=== PATIENT | male | born 1960 | race Caucasian/White ===

== ENCOUNTER 2022-12-31 05:57 | Outpatient (REF) | payer BC, SELFPAY ==
[2022-12-31 06:18] LABS: MANUAL DIFF FLAG NO
[2022-12-31 08:11] LABS: Basophils Absolute Auto 0.1 X10*3/uL (0.0-0.2); Basophils Percent Auto 0.8 % (0-2); Eosinophils Absolute Auto 0.4 X10*3/uL (0.0-0.4); Eosinophils Percent Auto 4.2 % (0-4); Hemoglobin 14.3 g/dl (14.0-18.0); Imm Gran Abs Auto 0.03 X10*3/uL (0.00-0.03); Imm Gran Pct Auto 0.3 % (0.0-0.4); Lymphocytes Absolute Auto 2.3 X10*3/uL (1.2-4.9); Lymphocytes Percent Auto 24.9 % (20-40); Mean Corpuscular HGB Conc 33.3 g/dl (31.0-36.0); Mean Corpuscular Hemoglobin 31.6 pg (27.0-33.0); Mean Corpuscular Volume 95.1 fL (80.0-98.0); Mean Platelet Volume 10.5 fL (9.4-12.4); Monocytes Absolute Auto 0.8 X10*3/uL (0.1-1.2); Monocytes Percent Auto 8.4 % (2-11); Neutrophils Absolute Auto 5.5 x10*3/uL (2.0-8.3); Neutrophils Percent Auto 61.4 % (45-73); Platelet Count 190 X10*3/uL (160-400); Red Blood Count 4.52 X10*6/uL (4.60-5.80); Red Cell Distribution Width 12.4 % (11.0-16.0)
[2022-12-31 08:34] LABS: Alanine Aminotransferase 24 U/L (0-40); Albumin Level 4.4 g/dL (3.5-5.0); Alkaline Phosphatase 65 U/L (39-117); Anion Gap 14 (12-20); Aspartate Amino Transferase 24 U/L (5-37); Bilirubin Total 0.6 mg/dL (0.0-1.0); Blood Urea Nitrogen 13 mg/dL (9-16); Calcium 9.4 mg/dL (8.4-10.2); Carbon Dioxide 25 mmol/L (22-29); Chloride 107 mmol/L (96-108); Cholesterol 130 mg/dL (<200); Estimated Glomerular Filt Rate > 60; Glucose Fasting 103 mg/dL (60-99); HDL Cholesterol 43 mg/dL (>40); LDL Cholesterol Calculated 72 mg/dL (<100); Potassium 4.2 mmol/L (3.3-5.1); Sodium 142 mmol/L (135-145); Triglycerides 79 mg/dL (<150)
[2022-12-31 08:56] LABS: Prostate Specific Antigen 0.64 ng/mL (<0.05-4.0)
== END 2022-12-31 05:58 | disposition home or self-care (01) ==
LOC: HO.LAB 05:57
PROVIDERS: PCP Internal Medicine; Visit Provider Internal Medicine
DX: Z12.5 Encounter for screening for malignant neoplasm of prostate (principal); I10 Essential (primary) hypertension; E78.00 Pure hypercholesterolemia, unspecified
CPT/HCPCS: 36415; 80053; 80061; 84153; 85025

== ENCOUNTER 2024-02-25 08:52 | Emergency (ER) | payer BC, SELFPAY ==
--- NOTE | ~2024-02-25 | XR_ITS ---
EXAMINATION: XR CLAVICLE, LEFT CLINICAL INFORMATION: Fall COMPARISON: None available. TECHNIQUE: Two views of the left clavicle. FINDINGS: Mildly displaced noncomminuted fracture involving the mid left clavicle with approximately half shaft length cranial displacement of the proximal fragment. Joint spaces and alignment are otherwise maintained. Soft tissues are unremarkable. Visualized portions of the chest are unremarkable. XR/XR clavicle LT IMPRESSION: Mildly displaced noncomminuted fracture involving the mid left clavicle with approximately half shaft length cranial displacement of the proximal fragment. Electronically signed by: Flakito Aguirre MD 02/25/2024 09:41 AM [facility]
[2024-02-25 09:09] VITALS: BP 194/95; PULSE 77; RESP 18; TEMP 36.8; O2SAT 99; BMI 27.4
--- NOTE | 2024-02-25 09:55 | ED_ITS ---
HPI - Extremity Problem General Chief complaint: Extremity Injury, Upper Stated complaint: fall l shoulder inj Time Seen by Provider: 02/25/24 09:33 Source: patient Mode of arrival: ambulatory Limitations: no limitations History of Present Illness ED Provider: Deisy Osorio APRN HPI Narrative: 63-year-old male with a history of hypertension who is right-hand dominant presents to the ER with complaints of left shoulder pain after mechanical fall which occurred last evening. Patient reports he tripped and fell landing on his left shoulder. There was no head strike or loss of consciousness. Reports pain in the left shoulder. Denies associated weakness, numbness or tingling of the extremity. Related Data Previous Rx's ?Medication ?Instructions ?Recorded oxycodone 5 mg tablet 5 mg PO Q8H PRN pain #6 tabs 02/25/24 Allergies Allergy/AdvReac Type Severity Reaction Status Date / Time No Known Allergies Allergy Verified 02/25/24 09:12 Review of Systems 2 Review of Systems: Yes all other systems are reviewed and are negative Constitutional: Constitutional: Reports no additional constitutional complaints, Denies body ache(s), Denies chills, Denies fever(s), Denies headache(s) and Denies weakness Eyes: Eyes: Reports no additional eye complaints and Denies change in vision ENT: Reports system reviewed and no additional complaints, except as documented, Denies dizziness, Denies headache(s), Denies nasal congestion, Denies nasal discharge and Denies neck pain Cardiovascular: Cardiovascular: Reports no additional cardiovascular complaints, Denies chest pain, Denies leg edema and Denies dyspnea Respiratory: Respiratory: Reports no additional respiratory complaints, Denies cough and Denies dyspnea Gastrointestinal: Gastrointestinal: Reports no additional gastrointestinal complaints, Denies abdominal pain, Denies diarrhea, Denies nausea and Denies vomiting Genitourinary: Genitourinary: Denies urinary incontinence Musculoskeletal: Musculoskeletal: Reports no additional musculoskeletal complaints, Denies back pain, Reports arthralgias, Denies joint swelling, Denies limited range of motion, Denies neck pain, Denies numbness and Denies tingling Integumentary/Breasts: Skin/Breast: Reports system reviewed and no additional complaints, except as docu and Denies rash Neurologic: Reports system reviewed and no additional complaints, except as documented, Denies Abnormal speech present, Denies dizziness, Denies headache(s), Denies numbness, Denies tingling and Denies weakness PMF Past Medical History Attestation statement: The following information was validated with the patient. Source: old records reviewed and nursing notes reviewed Social History Social History Advance Directives: No Advance Directives Information Provided: No Physical Exam 2 Vital Signs: Vital Signs: Last Vital Signs Temp 98.2 F 02/25/24 09:09 Pulse 77 02/25/24 09:09 Resp 18 02/25/24 09:09 BP 194/95 H 02/25/24 09:09 Pulse Ox 99 02/25/24 09:09 O2 Del Method Room Air 02/25/24 09:09 BMI result Body Mass Index 27.4 Const: General: cooperative, healthy appearing, comfortable and no acute distress Orientation/consciousness: patient oriented x3 Limitations: no limitations HEENT: Head: Yes normal to inspection Ears: hearing grossly normal bilaterally General nose exam: Normal external nose present Face and sinus: Yes normal facial exam Mouth: Normal oral and palatal mucosa present Throat: Yes posterior oropharynx normal Eyes: General: appearance normal, both eyes and all related structures P upils: Equal, round and reactive pupils present Neck: Neck: Yes normal visual inspection Chest: Chest palpation & inspection: normal inspection of the chest Chest/axillae images: 1. Bruising and swelling. No tenting of the skin. No crepitus Full range of motion of left upper extremity. 2+ radial and ulnar pulses. Normal sensation Resp: Effort & Inspection: normal respiratory effort Auscultation: clear to auscultation bilaterally Cardio: Rate: regular rate Rhythm: regular rhythm Peripheral pulses: P eripheral pulses 2+ throughout GI: Inspection: Yes normal to inspection Palpation (GI): Soft to palpation and nontender Auscultation: normal bowel sounds Back/Spine/Pelvis: Thoracic/Lumbar Spine: thoracic and lumbar spine normal to inspection Skin: General skin exam: no rashes or lesions noted Neuro: General: patient oriented x3, no focal motor deficits and normal sensation to monofilament Cranial nerves: Yes Equal, round and reactive pupils present Cognition (Neuro): normal cognition Speech: No Abnormal speech present Gait exam (Neuro): Normal gait present Motor exam (neuro): 5/5 motor strength present throughout Extrem: General: Yes normal to inspection Course Course Course Narrative: X-ray shows Mildly displaced noncomminuted fracture involving the mid left clavicle with approximately half shaft length cranial displacement of the proximal fragment. Patient placed in sling, reviewed rice, read food follow up with Orthopedics. Reviewed worrisome signs and symptoms of when to return to the emergency room. Comfortable plan for discharge home. Medical Decision Making Medical Decision Making MDM Narrative: 63-year-old male right-hand dominant your left shoulder pain after a mechanical fall which occurred last evening. Patient has ecchymosis and swelling over the left clavicular area. Left upper extremity with intact CMS Will check x-rays Differential Diagnosis Differential Diagnoses: The differential diagnosis associated with the presentation includes Fracture, contusion, dislocation Low suspicion for vascular injury Admission/Observation Consideration of admission/observation: Escalation of care including admission/observation considered Low suspicion for vascular injury, complex fracture or dislocation requiring advanced imaging, urgent orthopedic consultation Independent Interpretation I performed an independent interpretation of an: Plain X-Ray Interpretation: I independently viewed the x-ray and agree with the radiology report Radiology Impression Discussion of test interpretation with radiology: I have reviewed the radiologist's reading. Radiologist Impression: [address] [address] XRay Report Signed Patient: Ant Irvin MR#: [id number] : 1960 Acct:[id number] Age/Sex: 63 / M ADM Date: 02/25/24 Loc: .ED Attending Dr: Ordering Physician: Generic ED Physician Date of Service: 02/25/24 Procedure(s): XR clavicle LT Accession Number(s): [id number] cc: Tony Rosado MD; Generic ED Physician~ EXAMINATION: XR CLAVICLE, LEFT CLINICAL INFORMATION: Fall COMPARISON: None available. TECHNIQUE: Two views of the left clavicle. FINDINGS: Mildly displaced noncomminuted fracture involving the mid left clavicle with approximately half shaft length cranial displacement of the proximal fragment. Joint spaces and alignment are otherwise maintained. Soft tissues are unremarkable. Visualized portions of the chest are unremarkable. XR/XR clavicle LT IMPRESSION: Mildly displaced noncomminuted fracture involving the mid left clavicle with approximately half shaft length cranial displacement of the proximal fragment. Electronically signed by: Flakito Aguirre MD 02/25/2024 09:41 AM [facility] Tests considered The following testing was considered but not selected: low suspicion for vascular injury, complex fracture or dislocation requiring advanced imaging, Prescription Management I considered prescription management with: Pain Medication Procedures Orthopedic Splinting/Casting Injury #1: Side: left Upper Extremity Injury Location: shoulder Upper Extremity Immobilizer: sling/shoulder immobilizer Discharge Plan Discharge Clinical Impression: Fracture of clavicle Patient Disposition: Home, Self-Care Instructions: Clavicle Fracture (ED) Additional Instructions: Rest, ice, use the sling for comfort Take Motrin 3 times daily for pain as needed. If this does not improve your pain you may take the oxycodone. Call orthopedics to follow-up outpatient Prescriptions: New oxycodone 5 mg tablet 5 mg PO Q8H PRN (Reason: pain) Qty: 6 0RF Rx Instructions: Partial Fill upon patient request. Referrals: [facility] [place] Orthopedic Surgeons [Provider Group] - 1 week Print Language: Cook Islander
[2024-02-25 10:18] VITALS: BP 194/95; PULSE 77; RESP 18; TEMP 36.8; O2SAT 99
== END 2024-02-25 10:18 | disposition home or self-care (01) ==
PROVIDERS: Emergency Provider Emergency Medicine; PCP Internal Medicine
DX: S42.002A Fracture of unspecified part of left clavicle, initial encounter for closed fracture (principal); W01.0XXA Fall on same level from slipping, tripping and stumbling without subsequent striking against object, initial encounter; Y93.01 Activity, walking, marching and hiking; Y92.014 Private driveway to single-family (private) house as the place of occurrence of the external cause; Y99.9 Unspecified external cause status
CPT/HCPCS: 73000; 99283

== ENCOUNTER 2024-03-05 08:26 | Outpatient (REF) | payer BC, SELFPAY | END 2024-03-05 08:27 | disposition home or self-care (01) | LOC: HO.HOSX 08:26 | DX: S42.002A Fracture of unspecified part of left clavicle, initial encounter for closed fracture (principal); M89.8X1 Other specified disorders of bone, shoulder | CPT/HCPCS: 73000 ==

== ENCOUNTER 2024-03-05 08:39 | Outpatient (AMB) | payer BC, SELFPAY ==
--- NOTE | 2024-03-05 08:40 | MHC.OFFVIS ---
Vital Signs 03/05/24 08:49 Height 5 ft 11 in Weight 196 lb BMI 27.3 Handedness Right Intake Visit Reasons: FC- Fc LT involving the mid left clavicle Intake Note: Ant is a 61 year old right hand dominant male who presents today as a new patient for a fracture care visit for his clavicle fracture s/p fall DOI: 02/24/2024. Patient reports he was watering his lawn when it got dark out and he tripped over his garden hose landing on the left shoulder. He expresses after this injury with any ROM his left shoulder would click. He reports he does have clicking but not as often as when this initially happened. Reports constant pain, tightness and limited ROM. Denies numbness and tingling. Expresses he feels all his digits in the left hand. Allergies No Known Allergies Allergy (Verified 03/05/24 08:50) HPI HPI FC- Fc LT involving the mid left clavicle: Details: Patient is a 63-year-old male who presents for evaluation of left clavicle fracture, date of injury 02/24/2024. The patient reports that on that date, he was outside while watering his lawn, and he tripped over the hose he was using. Patient reported that he felt clicking when he was attempting to move a shoulder, and went to the emergency department the next day, where x-rays did reveal a minimally displaced fracture of the mid shaft of the left clavicle. Patient reports that he has been in a sling 90% of the time since that time, as instructed by the ED. patient denies any numbness or tingling in the left upper extremity. No other acute complaints or concerns at this time. [facility] Social History (Updated 03/05/24 @ 08:51 by JOSE Odom) Alcohol intake: current Alcohol intake frequency: a few times a week Patient Tobacco Use Status: Former Tobacco user Current occupational status: retired Current occupation: right handed Review of Systems Const All systems reviewed & are unremarkable except as noted in HPI and below Physical Exam Vital Signs: BMI result Body Mass Index 27.3 Extrem Other: On inspection, there is no visible deformity of the patient's left shoulder There is noted to be some ecchymosis on the proximal left upper extremity, but none in the area of the fracture No erythema, edema noted No evidence of infection Patient reports no tenderness to palpation of the left clavicle at the level of the fracture No other tenderness to palpation noted Range of motion of the patient's left elbow, wrist, hand full and intact Distal sensation intact Capillary refill brisk Office Procedures AMB Fracture Care Fracture Billing Code: Fracture Billing Code Results Reviewed Results Reviewed: X-rays obtained in the office today and independently reviewed by me, Richmond Mejia PA-C, demonstrate minimally displaced fracture of the patient's left clavicle with slightly increased displacement from ED x-rays. Assessment & Plan Assessment & Plan (1) Closed fracture of left clavicle: Code(s): S42.002A - Fracture of unspecified part of left clavicle, initial encounter for closed fracture Category: Medical Plan 1. Fracture of the left clavicle Date of injury 02/24/2024 Patient is educated about this injury and the typical recovery course At this time, patient is educated that he does not need to remain in the sling at all times, and instead can allow the arm to hang down, only wearing the sling for comfort or while in crowded or potentially dangerous situations for re-injury Patient is advised that he should avoid any motion away from the body with his left shoulder, as well as any overhead motion Patient is also advised that he should not be lifting anything heavier than 5 lb in the left arm or hand Patient was amenable to this plan Patient will follow-up in 2-3 weeks with repeat x-rays, sooner with any acute concerns Orders: Orders XR clavicle LT Today M89.8X1 - Other specified disorders of bone, shoulder Coding Level of Care Code New Pt Level 3 (88081) Diagnoses Closed fracture of left clavicle S42.002A CPT Codes Fracture Care - Fracture Billing Code: Fracture Billing Code ([id number])
[2024-03-05 08:49] VITALS: BMI 27.3
== END 2024-03-05 09:08 | disposition home or self-care (01) ==
PROVIDERS: PCP Internal Medicine
DX: S42.002A Fracture of unspecified part of left clavicle, initial encounter for closed fracture (principal); W01.0XXA Fall on same level from slipping, tripping and stumbling without subsequent striking against object, initial encounter
CPT/HCPCS: 99203

== ENCOUNTER 2024-03-21 13:36 | Outpatient (REF) | payer BC, SELFPAY ==
--- NOTE | ~2024-03-21 | XR_ITS ---
EXAMINATION: XR LEFT CLAVICLE CLINICAL INFORMATION: Other specified disorders of bone, shoulder M89.8X1. COMPARISON: XR Left clavicle 03/05/2024 TECHNIQUE: 2 views of the left clavicle. FINDINGS: Unchanged fracture of the mid left clavicle with inferior displacement of the distal fracture fragment. No new fracture identified. The visualized lung gunn clear. XR/XR clavicle LT IMPRESSION: Unchanged fracture of the mid left clavicle with inferior displacement of the distal fracture fragment. Electronically signed by: Rogelio Roche MD 04/10/2024 01:19 PM [facility]
== END 2024-03-21 13:37 | disposition home or self-care (01) ==
LOC: HO.HOSX 13:36
DX: M89.8X1 Other specified disorders of bone, shoulder (principal)
CPT/HCPCS: 73000

== ENCOUNTER 2024-03-21 13:36 | Outpatient (AMB) | payer BC, SELFPAY ==
--- NOTE | 2024-03-21 13:42 | MHC.OFFVIS ---
Intake Visit Reasons: OV-Lt clavicle FX DOI: 02/24/24 w/Xray Intake Note: Ant is a 61 year old right hand dominant male who presents today for a follow up visit for his left clavicle fracture s/p fall DOI: 02/24/2024. Pt states he is feeling well and states his ROM has greatly improved. Allergies No Known Allergies Allergy (Verified 03/21/24 13:42) HPI HPI OV-Lt clavicle FX DOI: 02/24/24 w/Xray: Details: Patient is a 63-year-old male who presents for follow-up evaluation of the left clavicle fracture, date of injury 02/24/2024. Patient states that he is feeling very well, and has no pain at baseline. The patient also states that his range of motion has improved significantly. The patient states that he experiences no pain at baseline. The patient does state that he has not been wearing the sling at all since previous evaluation, as he does not feel that he needed it for comfort. Denies any numbness or tingling in the left upper extremity. No other acute complaints or concerns at this time. [facility] Social History (Updated 03/05/24 @ 08:51 by JOSE Odom) Alcohol intake: current Alcohol intake frequency: a few times a week Patient Tobacco Use Status: Former Tobacco user Current occupational status: retired Current occupation: right handed Review of Systems Const All systems reviewed & are unremarkable except as noted in HPI and below Physical Exam Extrem Other: On inspection, there is no visible deformity of the patient's left shoulder No ecchymosis noted No erythema, edema noted No evidence of infection Patient reports no tenderness to palpation of the left clavicle at the level of the fracture No other tenderness to palpation noted Range of motion of the patient's left elbow, wrist, hand full and intact Distal sensation intact Capillary refill brisk Results Reviewed Results Reviewed: X-rays taken in clinic today and independently reviewed by me, Richmond Mejia p.a.-C, demonstrate minimally displaced fracture of the left clavicle in satisfactory clinical alignment with some very early evidence of bony healing. Assessment & Plan Assessment & Plan (1) Closed fracture of left clavicle: Code(s): S42.002A - Fracture of unspecified part of left clavicle, initial encounter for closed fracture Category: Medical Plan 1. Closed left clavicle fracture Date of injury 02/24/2024 Patient appears to be recovering well from his injury Patient is educated about the typical recovery course , at this time, patient was informed that he should not be using the sling anymore, and should be allowing the arm to hang down at all times. Patient was also informed he can start some gentle range of motion with his arm away from the body, but this should not be with any weight-bearing and he should stop with any pain Patient was amenable To this plan patient is also referred to physical therapy to start working on range of motion of his left upper extremity including gentle range of motion of the shoulder Patient was amenable to this plan Patient will follow-up in 4 weeks with repeat x-rays, sooner with any acute concerns Orders: Orders XR clavicle LT 03/21/24 M89.8X1 - Other specified disorders of bone, shoulder PT Evaluation and Treatment 03/21/24 S42.002A - Fracture of unspecified part of left clavicle, initial encounter for closed fracture Coding Level of Care Code Global (94301) Diagnoses Closed fracture of left clavicle S42.002A
== END 2024-03-21 14:10 | disposition home or self-care (01) ==
PROVIDERS: PCP Internal Medicine
DX: S42.002A Fracture of unspecified part of left clavicle, initial encounter for closed fracture (principal)
CPT/HCPCS: 99213

== ENCOUNTER 2024-04-25 07:30 | Outpatient (REF) | payer BC, SELFPAY ==
--- NOTE | ~2024-04-25 | XR_ITS ---
CLINICAL HISTORY: M89.8X1 - Other specified disorders of bone, shoulder Left clavicle, 2 views COMPARISON: None FINDINGS: Subacute appearing left mid clavicle fracture with overriding fracture fragments and marginal callus formation. No dislocation. Unremarkable soft tissues. IMPRESSION: Subacute appearing left mid clavicle fracture. This document has been electronically signed by: Prosper Salguero MD on 04/27/2024 22:54:06
--- OUTSIDE RECORDS SUMMARY | 2024-04-25 07:32 | XMS_ITS ---
Author Organization [facility] Address [address] [place] [address] Care Team Providers Care Forming Department Supervisor Name Role Phone Tony Rosado MD Primary Care Provider Unavaila Joseph Wynn Unavailable [phone] REASON FOR VISIT Patient presents today for a SCREENING COLON Encounters Encounter Location Date Provider Diagnosis [facility] [address] [place] [phone] 04/04/2024 Joseph Garcia PLAN OF TREATMENT No Information
--- OUTSIDE RECORDS SUMMARY | 2024-04-25 07:32 | XMS_ITS | Patient Health Record ---
Author Organization [facility] Address [address] [place] [address] Care Team Providers Care Director Sanitation Bureau Name Role Phone Tony Rosado MD Primary Care Provider Joseph Harris Unavailable [phone] REASON FOR REFERRAL No Information SOCIAL HISTORY Sex Assigned At : Social History Observation Description Sex Assigned At Unknown PROBLEMS Problem Type ICD Code Onset Dates Problem Status W/U Status Risk SNOMED Code Notes Problem Special screening for malignant neoplasms, colon (V76.51) Active confirmed Screening for malignant neoplasm of colon (167298783) Problem Nonspecific abnormal results of liver function study (794.8) Active confirmed Liver function tests abnormal (694103137) Encounters Encounter Location Date Provider Diagnosis [facility] [address] [place] [phone] 04/04/2024 Joseph Garcia [facility] [address] [place] [phone] 04/04/2024 Joseph Garcia PLAN OF TREATMENT Pending Test Test Name Order Date LIVER PROFILE 02/19/2011 HEPATITIS A,B,C PROFILE 02/19/2011 SMOOTH MUSCLE ANTIBODIES 02/19/2011 Insurance Providers Payer Name Payer Address Payer Phone Subscriber Number Group Number Insured Name Patient Relationship to Insured Coverage Start Date Coverage End Date [facility] [address] [place], [place] [id number] [phone] [id number] CM MICHAEL Self - patient is the insured
== END 2024-04-25 07:31 | disposition home or self-care (01) ==
LOC: HO.HOSX 07:30
DX: M89.8X1 Other specified disorders of bone, shoulder (principal); S42.002A Fracture of unspecified part of left clavicle, initial encounter for closed fracture; X58.XXXA Exposure to other specified factors, initial encounter; Y93.9 Activity, unspecified; Y92.9 Unspecified place or not applicable; Y99.9 Unspecified external cause status
CPT/HCPCS: 73000

== ENCOUNTER 2024-04-25 08:31 | Outpatient (AMB) | payer BC, SELFPAY ==
--- OUTSIDE RECORDS SUMMARY | 2024-04-25 08:38 | XMS_ITS ---
Author Organization [facility] Address [address] [place] [address] Care Team Providers Care School Speech Language Pathologist Name Role Phone Tony Rosdao MD Primary Care Provider Unavaila Joseph Wynn Unavailable [phone] REASON FOR VISIT Pt no showed Encounters Encounter Location Date Provider Diagnosis [facility] [address] [place] [phone] 04/04/2024 Joseph Garcia PLAN OF TREATMENT No Information
--- NOTE | 2024-04-25 08:39 | MHC.OFFVIS ---
Vital Signs 04/25/24 08:40 Height 5 ft 11 in Weight 196 lb BMI 27.3 Intake Visit Reasons: OV-Lt clavicle FX DOI: 02/24/24 w/Xray Intake Note: Ant is a 63 year old right hand dominant male who presents today for a follow up of his Left Clavicle Fracture DOI 02/24/24 . Patient reports that he is doing well with no pain, numbness or tingling. He has no concerns at this time. Allergies No Known Allergies Allergy (Verified 04/25/24 08:43) HPI HPI OV-Lt clavicle FX DOI: 02/24/24 w/Xray: Details: Ant is a 63 year old right hand dominant male who presents today for a follow up of his Left Clavicle Fracture DOI 02/24/24 . Patient reports that he is doing well with no pain, numbness or tingling. He has no concerns at this time. [facility] Social History (Updated 03/05/24 @ 08:51 by JOSE Odom) Alcohol intake: current Alcohol intake frequency: a few times a week Patient Tobacco Use Status: Former Tobacco user Current occupational status: retired Current occupation: right handed Review of Systems Const All systems reviewed & are unremarkable except as noted in HPI and below Physical Exam Vital Signs: BMI result Body Mass Index 27.3 Extrem Other: On inspection, there is no visible deformity of the patient's left shoulder No ecchymosis noted No erythema, edema noted No evidence of infection Patient reports no tenderness to palpation of the left clavicle at the level of the fracture No other tenderness to palpation noted Range of motion of the patient's left elbow, wrist, hand full and intact Patient is able to forward flex and abduct the left shoulder to 90 degrees without difficulty External rotation to approximately 60 degrees painless Distal sensation intact Capillary refill brisk Results Reviewed Results Reviewed: X-rays taken in clinic today and independently reviewed by me, Richmond Mejia p.a.-C, demonstrate minimally displaced fracture of the left clavicle in satisfactory clinical alignment with evidence of interval bony healing. Assessment & Plan Assessment & Plan (1) Closed fracture of left clavicle: Code(s): S42.002A - Fracture of unspecified part of left clavicle, initial encounter for closed fracture Category: Medical Plan 1. Closed left clavicle fracture Date of injury 02/24/2024 Patient appears to be recovering well from his injury Patient is educated about the typical recovery course , at this time, patient was informed that he should not be using the sling anymore, and should be allowing the arm to hang down at all times. Patient was also informed he can continue range of motion with his arm away from the body, but then he should continue to avoid any heavy overhead lifting or lifting away from the body Patient was amenable To this plan Patient should continue with physical therapy Patient will follow-up in 4-5 weeks with repeat x-rays, sooner with any acute concerns Orders: Orders XR clavicle LT Today M89.8X1 - Other specified disorders of bone, shoulder Coding Level of Care Code Global (49489) Diagnoses Closed fracture of left clavicle S42.002A
[2024-04-25 08:40] VITALS: BMI 27.3
== END 2024-04-25 09:21 | disposition home or self-care (01) ==
PROVIDERS: PCP Internal Medicine
DX: S42.002A Fracture of unspecified part of left clavicle, initial encounter for closed fracture (principal)
CPT/HCPCS: 99213

== ENCOUNTER → 2024-04-25 08:34 | Outpatient (BNV) | payer BC, SELFPAY | PROVIDERS: Visit Provider Radiology Diagnostic Radiology | DX: S42.022A Displaced fracture of shaft of left clavicle, initial encounter for closed fracture (principal) | CPT/HCPCS: 73000 ==

== ENCOUNTER 2024-05-03 08:27 | Outpatient (REF) | payer BC, SELFPAY ==
[2024-05-03 10:34] LABS: MANUAL DIFF FLAG NO
[2024-05-03 10:38] LABS: Basophils Absolute Auto 0.1 X10*3/uL (0.0-0.2); Basophils Percent Auto 0.9 % (0-2); Eosinophils Absolute Auto 0.5 X10*3/uL (0.0-0.4); Eosinophils Percent Auto 6.1 % (0-4); Hematocrit 45.1 % (42.0-52.0); Hemoglobin 15.2 g/dl (14.0-18.0); Imm Gran Abs Auto 0.02 X10*3/uL (0.00-0.03); Imm Gran Pct Auto 0.2 % (0.0-0.4); Lymphocytes Absolute Auto 2.5 X10*3/uL (1.2-4.9); Lymphocytes Percent Auto 31.3 % (20-40); Mean Corpuscular HGB Conc 33.7 g/dl (31.0-36.0); Mean Corpuscular Hemoglobin 31.9 pg (27.0-33.0); Mean Corpuscular Volume 94.7 fL (80.0-98.0); Monocytes Absolute Auto 0.7 X10*3/uL (0.1-1.2); Monocytes Percent Auto 8.8 % (2-11); Neutrophils Absolute Auto 4.3 x10*3/uL (2.0-8.3); Neutrophils Percent Auto 52.7 % (45-73); Platelet Count 215 X10*3/uL (160-400); Red Blood Count 4.76 X10*6/uL (4.60-5.80); Red Cell Distribution Width 12.2 % (11.0-16.0); White Blood Count 8.1 X10*3/uL (4.8-10.8)
[2024-05-03 11:11] LABS: Prostate Specific Antigen Scr 0.67 ng/mL (<0.05-4.0)
[2024-05-03 11:17] LABS: Alanine Aminotransferase 45 U/L (0-40); Albumin Level 4.7 g/dL (3.5-5.0); Alkaline Phosphatase 79 U/L (39-117); Anion Gap 12 (12-20); Aspartate Amino Transferase 34 U/L (5-37); Blood Urea Nitrogen 10 mg/dL (9-16); Calcium 8.9 mg/dL (8.4-10.2); Carbon Dioxide 24 mmol/L (22-29); Chloride 108 mmol/L (96-108); Cholesterol 155 mg/dL (<200); Estimated Glomerular Filt Rate > 60; Glucose Fasting 105 mg/dL (60-99); HDL Cholesterol 38 mg/dL (>40); LDL Cholesterol Calculated 83 mg/dL (<100); Potassium 4.6 mmol/L (3.3-5.1); Sodium 139 mmol/L (135-145); Total Protein 7.7 g/dL (6.5-8.0); Triglycerides 170 mg/dL (<150)
[2024-05-03 11:29] LABS: Appearance Urine Turbid; Color Urine Yellow; Glucose Urine UA Negative (Negative); Leukocyte Esterase Urine Negative (Negative); Nitrite Urine Negative (Negative); Specific Gravity - Urine >= 1.030 (1.005-1.025); UMIC TRIGGER UA YES; Urine Blood Trace (Negative); Urine Ketones Negative (Negative); Urine Protein Negative (Neg-Trace)
[2024-05-03 11:49] LABS: Bacteria Urine None Seen (None Seen); Calcium Oxalate Crystals Urine Present; Hyaline Casts Urine 0-2 /LPF (0-2); RBC Urine 0-2 /HPF (0-2); Squamous Epithelial Cell Urine 0-2 /HPF (0-2); WBC Urine 0-5 /HPF (0-5)
== END 2024-05-03 08:28 | disposition home or self-care (01) ==
LOC: HO.10HDL 08:27
PROVIDERS: Visit Provider Internal Medicine
DX: I10 Essential (primary) hypertension (principal); E78.00 Pure hypercholesterolemia, unspecified; N40.0 Benign prostatic hyperplasia without lower urinary tract symptoms; Z12.5 Encounter for screening for malignant neoplasm of prostate
CPT/HCPCS: 36415; 80053; 80061; 81001; 84153; 85025

== ENCOUNTER 2024-05-03 08:40 | Outpatient (RCR) | payer BC, SELFPAY ==
[2024-04-03 13:47] VITALS: BP 168/84; PULSE 89
--- NOTE | 2024-04-03 15:55 | MHC.PT.EP ---
[facility] [place] Office [place] Office [place] Office [address] [phone] F: [phone] F: [phone] F: [phone] F: [phone] Physical Therapy Plan of Care Date of Evaluation: 04/03/24 Date of Surgery: N/A Diagnosis: Closed fracture of LEFT clavicle ( Dx) Assessment: Ant is a 63 y.o. male who was referred by Richmond Mejia PA-C of [facility] for Dx of Closed fracture of LEFT clavicle. Impairments include decreased shoulder ROM, pain with shoulder movement, decreased shoulder strength resulting in their inability to reach overhead, lift, or carry. These deficits are impacting their ability to participate in lifting over 5 lbs for house work and sleeping comfortably. Pt will benefit from skilled PT to address impairments and meet their goals. Frequency and Duration: The patient will be seen 2x/week for 4 weeks Short Term Goals: 2 weeks Patient will be able to perform HEP to independently manage condition. Materials Planning Analyst Goals: 4 weeks Patient will increase L shoulder abduction AROM to 180 degrees to be able to reach for an object to the side of him. Patient will increase L shoulder flexion strength to 5/5 to be able to lift 10 lb without pain. Treatment Plan: Modalities to reduce pain, spasms and effusion. Manual therapy to restore motion and function. Therapeutic exercise to improve strength and flexibility. Neuromuscular re-education for posture and balance. Therapeutic activities to return to functional activities of daily living. Electronically signed by: Ayse David, PT, DPT Please sign and return to therapist. Thank you for your referral.
--- NOTE | 2024-05-03 14:28 | MHC.PT.DC ---
[facility] [place] Office [place] Office [place] Office [address] Joe Stevens [address] [phone] F: [phone] F: [phone] F: [phone] F: [phone] Physical Therapy Discharge Report Diagnosis: Closed fracture of LEFT clavicle ( Dx) Date of Surgery: N/A Date of Evaluation: 04/03/24 Date of Discharge: 05/03/24 Treatments to Date: 8 Cancellations to Date: No Shows to Date: Discharge Status: Achieved Goals Improved Function Independent with HEP Discharge Summary: Ant reports no pain in his L clavicle. He presents with near full AROM in L shoulder, with ER being near full to contralateral side. He feels he can continue with independent HEP to self mange continued healing of his clavicular fx. He did well with PT interventions. Electronically signed by: Ayse David, PT, DPT Please sign and return to therapist. Thank you for your referral.
== END 2024-05-03 14:29 | disposition home or self-care (01) ==
LOC: HO.PT 08:40
PROVIDERS: PCP Internal Medicine
DX: S42.002A Fracture of unspecified part of left clavicle, initial encounter for closed fracture (principal)
CPT/HCPCS: 97110; 97140; 97161; 97530; 97535

== ENCOUNTER 2024-05-23 08:35 | Outpatient (REF) | payer BC, SELFPAY ==
--- NOTE | ~2024-05-23 | XR_ITS ---
EXAMINATION: XR CLAVICLE, LEFT CLINICAL INFORMATION: M89.8X1 - Other specified disorders of bone, shoulder COMPARISON: Left clavicle 04/25/2024 TECHNIQUE: Two views of the left clavicle. FINDINGS: An overlapping mid clavicular fracture with hypertrophic callus formation. The AC joint and the glenohumeral joint spaces appears normal. The soft tissues are normal. XR/XR clavicle LT IMPRESSION: Old overlapping mid clavicular fracture with hypertrophic callus formation. No acute fracture or dislocation seen Electronically signed by: Jaspreet Espinal MD 05/23/2024 10:37 AM EST
== END 2024-05-23 08:36 | disposition home or self-care (01) ==
LOC: HO.HOSX 08:35
DX: S42.002D Fracture of unspecified part of left clavicle, subsequent encounter for fracture with routine healing (principal); M89.8X1 Other specified disorders of bone, shoulder
CPT/HCPCS: 73000

== ENCOUNTER 2024-05-23 08:42 | Outpatient (AMB) | payer BC, SELFPAY ==
--- NOTE | 2024-05-23 08:45 | A.OFFVIS_ITS ---
Vital Signs 05/23/24 08:48 Height 5 ft 11 in Weight 196 lb BMI 27.3 Intake Visit Reasons: OV-Lt clavicle FX DOI: 02/24/24 w/Xray Intake Note: Ant is a 63 year old right hand dominant male who presents today for a follow up of his Left Clavicle Fracture DOI 02/24/24. At his last visit he was instructed to discontinue use of the sling and avoid any overhead lifting or l ifting away from the body. Patient reports that he is doing well, has no pain or concerns at this time. He has completed physical therapy. Allergies No Known Allergies Allergy (Verified 05/23/24 08:50) HPI HPI OV-Lt clavicle FX DOI: 02/24/24 w/Xray: Details: Ant is a 63 year old right hand dominant male who presents today for a follow up of his Left Clavicle Fracture DOI 02/24/24. At his last visit he was instructed to discontinue use of the sling and avoid any overhead lifting or lifting away from the body. Patient reports that he is doing well, has no pain or concerns at this time. He has completed physical therapy. [facility] Social History (Updated 03/05/24 @ 08:51 by JOSE Odom) Alcohol intake: current Alcohol intake frequency: a few times a week Patient Tobacco Use Status: Former Tobacco user Current occupational status: retired Current occupation: right handed Review of Systems Const All systems reviewed & are unremarkable except as noted in HPI and below Physical Exam Vital Signs: BMI result Body Mass Index 27.3 Extrem Other: On inspection, there is no visible deformity of the patient's left shoulder No ecchymosis noted No erythema, edema noted No evidence of infection Patient reports no tenderness to palpation of the left clavicle at the level of the fracture No other tenderness to palpation noted Range of motion of the patient's left elbow, wrist, hand full and intact Patient is able to forward flex and abduct the left shoulder to 90 degrees without difficulty External rotation to approximately 60 degrees painless Distal sensation intact Capillary refill brisk Results Reviewed Results Reviewed: X-rays taken in clinic today and independently reviewed by me, Richmond Mejia p.a.-C, demonstrate minimally displaced fracture of the left clavicle in satisfactory clinical alignment with evidence of interval bony healing. Assessment & Plan Assessment & Plan (1) Closed fracture of left clavicle: Code(s): S42.002A - Fracture of unspecified part of left clavicle, initial encounter for closed fracture Category: Medical Plan 1. Closed left clavicle fracture Date of injury 02/24/2024 Patient appears to be recovering well from his injury Patient is educated about the typical recovery course Patient was also informed he can continue range of motion with his arm away from the body, and that he can start lifting things away from the body, but should not do anything that causes him pain. If the patient does begin to experience pain, he should call us for sooner evaluation Patient was amenable To this plan No further PT necessary at this time Patient will follow-up in 6-8 weeks with repeat x-rays, sooner with any acute concerns Orders: Orders XR clavicle LT Today M89.8X1 - Other specified disorders of bone, shoulder Coding Level of Care Code Global (94201) Diagnoses Closed fracture of left clavicle S42.002A
[2024-05-23 08:48] VITALS: BMI 27.3
== END 2024-05-23 09:01 | disposition home or self-care (01) ==
PROVIDERS: PCP Internal Medicine
DX: S42.002D Fracture of unspecified part of left clavicle, subsequent encounter for fracture with routine healing (principal)
CPT/HCPCS: 99213

== ENCOUNTER → 2024-05-23 08:43 | Outpatient (BNV) | payer BC, SELFPAY | PROVIDERS: Visit Provider Radiology Diagnostic Radiology | DX: S42.022A Displaced fracture of shaft of left clavicle, initial encounter for closed fracture (principal) | CPT/HCPCS: 73000 ==

== ENCOUNTER 2024-07-20 08:34 | Outpatient (AMB) | payer BC, SELFPAY ==
--- NOTE | 2024-07-20 09:01 | A.OFFVIS_ITS ---
Vital Signs 07/20/24 09:03 Height 5 ft 11 in Weight 196 lb BMI 27.3 Intake Visit Reasons: OV-Lt clavicle FX DOI: 02/24/24 w/Xray Intake Note: Ant is a 64 year old right hand dominant male who presents today for follow up status post left clavicle fracture, DOI 02/24/24. At his last visit patient was notified he no longer needed to go to formal PT however he should continue to work on range of motion with his arm away from the body, as well as beginning to lift things away from the body. Allergies No Known Allergies Allergy (Verified 07/20/24 09:03) HPI HPI OV-Lt clavicle FX DOI: 02/24/24 w/Xray: Details: Ant is a 64 year old right hand dominant male who presents today for follow up status post left clavicle fracture, DOI 02/24/24. At his last visit patient was notified he no longer needed to go to formal PT however he should continue to work on range of motion with his arm away from the body, as well as beginning to lift things away from the body. Doing very well, no concerns at this time. Reports he is back to full range of motion from prior to injury. [facility] Social History (Updated 03/05/24 @ 08:51 by JOSE Odom) Alcohol intake: current Alcohol intake frequency: a few times a week Patient Tobacco Use Status: Former Tobacco user Current occupational status: retired Current occupation: right handed Review of Systems Const All systems reviewed & are unremarkable except as noted in HPI and below Physical Exam Vital Signs: BMI result Body Mass Index 27.3 Extrem Other: On inspection, there is no visible deformity of the patient's left shoulder No ecchymosis noted No erythema, edema noted No evidence of infection Patient reports no tenderness to palpation of the left clavicle at the level of the fracture No other tenderness to palpation noted Range of motion of the patient's left elbow, wrist, hand full and intact Patient is able to forward flex and abduct the left shoulder to 120 degrees without difficulty External rotation to approximately 60 degrees painless Distal sensation intact Capillary refill brisk Assessment & Plan Assessment & Plan (1) Closed fracture of left clavicle: Code(s): S42.002A - Fracture of unspecified part of left clavicle, initial encounter for closed fracture Category: Medical Plan 1. Closed left clavicle fracture Date of injury 02/24/2024 Patient appears to be recovering well from his injury Patient is educated about the typical recovery course Patient was also informed he can continue range of motion with his arm away from the body, and that he can start lifting things away from the body, but should not do anything that causes him pain. If the patient does begin to experience pain, he should call us for sooner evaluation Patient was amenable To this plan No further PT necessary at this time Patient will follow-up as needed with any acute concerns Coding Level of Care Code Global (74326) Diagnoses Closed fracture of left clavicle S42.002A
--- OUTSIDE RECORDS SUMMARY | 2024-07-20 09:02 | XMS_ITS ---
Author Organization [facility] Address [address] [facility] [address] [place] [address] Care Team Providers Care Insurance Adviser Name Role Phone Tony Rosado MD Primary Care Provider Unavaila Joseph Wynn Unavailable [phone] REASON FOR VISIT Pt no showed Encounters Encounter Location Date Provider Diagnosis [facility] [address] [facility] [address] [place] [phone] 04/04/2024 Joseph Garcia Plan Of Treatment Next Appt Details Provider Name:Joseph Garcia , 09/05/2024 01:00:00 PM, [address] [facility], [address], [place], [address], Progress Notes * CM MICHAELDOB:1960 (63 yo M)Acc No.[id number]:04/04/2024 Patient:?CM MICHAEL :1960???Age:63 Y???Sex:Male Address:[address] [place] [id number] * true * Date:? Generated for Robi fracisco/Oumar/eTransmitting on:?07/20/2024 09:02 AM EDT
--- OUTSIDE RECORDS SUMMARY | 2024-07-20 09:02 | XMS_ITS ---
Author Organization [facility] Address [address] [facility] [address] [place] [address] Care Team Providers Care Services Host Name Role Phone Tony Rosado MD Primary Care Provider Joseph Harris [phone] REASON FOR VISIT Patient presents today for a SCREENING COLON Encounters Encounter Location Date Provider Diagnosis [facility] [address] [facility] [address] [place] [address] 04/04/2024 Joseph Garcia Plan Of Treatment Next Appt Details Provider Name:Joseph Garcia , 09/05/2024 01:00:00 PM, [address] [facility], [address], [place], [address], Progress Notes * CM MICHAELDOB:1960 (64 yo M)Acc No.[id number]:04/04/2024 Progress Notes Patient:CM ACKERMAN Provider:?Joseph Garcia MD :1960???Age:63 Y???Sex:Male Anuj e:04/04/2024 Address:[address] [place], [place] [id number] Pcp:Tony Rosado MD Subjective: * Chief Complaints: * ???1. Patient presents today for a SCREENING COLON. * Medical History:? Objective: * Vitals:? Assessment: Plan: * Treatment: * * The named appointment provid er may or may not be the originator of this progress note, and it is not deemed complete until electronically signed by the appointment provider. Sign off status: Pending * Provider:?Joseph Garcia MD Date:? 024 Generated for Crista yap/Oumar/eTransmitting on:?07/20/2024 09:01 AM EDT
--- OUTSIDE RECORDS SUMMARY | 2024-07-20 09:02 | XMS_ITS | Patient Health Record ---
Author Organization [facility] Address [address] [place] [address] Care Team Providers Care Shipmaster Name Role Phone Tony Rosado MD Primary Care Provider Joseph Harris Unavailable [phone] Reason For Referral No Information Problems Problem Type SNOMED Code ICD Code Onset Dates Problem Status W/U Status Risk Notes Problem Liver function tests abnormal (405711670) Nonspecific abnormal results of liver function study (794.8) Active confirmed Problem Screening for malignant neoplasm of colon (167382803) Special screening for malignant neoplasms, colon (V76.51) Active confirmed Encounters Encounter Location Date Provider Diagnosis [facility] [address] [facility] [address] [place] [address] 04/04/2024 Joseph Garcia Plan Of Treatment Pending Test Test Name Order Date LIVER PROFILE 02/19/2011 HEPATITIS A,B,C PROFILE 02/19/2011 SMOOTH MUSCLE ANTIBODIES 02/19/2011 Next Appt Details Provider Name:Joseph Garcia , 09/05/2024 01:00:00 PM, [address] [facility], [address], [place], [address], Insurance Providers Payer Name Payer Address Payer Phone Subscriber Number Group Number Insured Name Patient Relationship to Insured Coverage Start Date Coverage End Date [facility] [address] [place], [place] [id number] [phone] [id number] CM MICHAEL Self - patient is the insured
[2024-07-20 09:03] VITALS: BMI 27.3
== END 2024-07-20 09:17 | disposition home or self-care (01) ==
LOC: HO.HOS 08:34
DX: S42.002A Fracture of unspecified part of left clavicle, initial encounter for closed fracture (principal)
CPT/HCPCS: 99213

== ENCOUNTER 2024-12-03 06:28 | Day surgery (SDC) | payer MEDICARE, SELFPAY ==
--- OUTSIDE RECORDS SUMMARY | 2024-04-04 10:40 | XMS_ITS ---
Author Organization [facility] Address [address] [address] Care Team Providers Care Bi Solutions Architect Name Role Phone VERENA PORTILLO Primary Care Provider Joseph Jackson [phone] REASON FOR VISIT Patient presents today for a SCREENING COLON Encounters Encounter Location Date Provider Diagnosis [facility] [address] [address] 04/04/2024 Joseph Garcia Plan Of Treatment Next Appt Details Provider Name:Joseph Garcia , 12/03/2024 08:20:00 AM, [address] [place] [address] , [place], [place], [id number], Progress Notes * CM MICHAEL LDOB: (64 yo M)Acc No.[id number]:04/04/2024 Progress Notes Patient: CM CANTOR Nataly Provider: Manju Garcia MD :1960 A ge:63 Y S ex:Male Date:04/04/2024 Address:[address] [place], [place] [id number] Pcp:VERENA PORTILLO Subjective: * Chief Complaints: * 1 . Patient presents today for a SCREENING COLON. * Medical History: Objective: * Vitals: Assessment: Plan: * Treatment: * * The named appointment provid er may or may not be the originator of this progress note, and it is not deemed complete until electronically signed by the appointment provider. Sign off status: Pending * Provider: Manju Garcia MD Date: 1 06/05/2023 Generated for Crista yap/Oumar/Uyen on: 0 11/07/2024 02:07 PM EDT
[2024-11-29 14:24] VITALS: BMI 30.1
--- NOTE | 2024-11-30 09:33 | HO.ANESPROP2 ---
Documented by User: Alessia Jaramillo NP 11/30/24 09:33 HPI - Anesthesia Eval Consult details Narrative: 64yo M for Colonoscopy [facility] Active Problems Active Problems: All Active Problems Closed fracture of left clavicle (Acute) Past Medical History Medical History Kidney stones Hyperlipidemia HTN (hypertension) Surgical History Surgical History H/O colonoscopy History of surgery on wrist Social History Social History Are you a primary patient care assistant to a significant other at home: No Do you presently have visiting nurse or other home services: No Alcohol intake: current Alcohol intake frequency: does not drink Patient Tobacco Use Status: Former Tobacco user Second Hand Smoke Exposure: No Use of substances other than those prescribed or required for medical reasons: No Have you been hit, kicked, punched, or otherwise hurt by someone within the past year? If so, by whom?: No Are you DNR?: No Advance Directives: No Advance Directives Information Provided: Yes Advance Directives on File: No Poor oral hygiene: No Current occupational status: retired Current occupation: right handed Meds Allergies Allergy/AdvReac Type Severity Reaction Status Date / Time No Known Allergies Allergy Verified 07/20/24 09:03 Home Medications ?Medication ?Instructions ?Recorded ?Confirmed ?Last Taken ?Type lisinopril 20 mg tablet 20 mg PO DAILY 03/05/24 11/29/24 12/02/24 History simvastatin 20 mg tablet 20 mg PO QPM 03/05/24 11/29/24 12/02/24 History Exam Height,Weight and Vital Signs: Height 5 ft 11 in Weight 97.795 kg Assessment and Plan Assessment Anesthesia Assessment: Chart Reviewed Documented by User: Valerie Bush MD 12/03/24 07:49 [facility] Past Medical History Medical History Kidney stones Hyperlipidemia HTN (hypertension) Family History Family history of problems with anesthesia: No Surgical History Surgical History H/O colonoscopy History of surgery on wrist History of Problems with Anesthesia: No Social History Social History Are you a primary patient care assistant to a significant other at home: No Do you presently have visiting nurse or other home services: No Alcohol intake: current Alcohol intake frequency: does not drink Patient Tobacco Use Status: Former Tobacco user Second Hand Smoke Exposure: No Use of substances other than those prescribed or required for medical reasons: No Have you been hit, kicked, punched, or otherwise hurt by someone within the past year? If so, by whom?: No Are you DNR?: No Advance Directives: No Advance Directives Information Provided: Yes Advance Directives on File: No Poor oral hygiene: No Current occupational status: retired Current occupation: right handed Meds Allergies Allergy/AdvReac Type Severity Reaction Status Date / Time No Known Allergies Allergy Verified 07/20/24 09:03 Home Medications ?Medication ?Instructions ?Recorded ?Confirmed ?Last Taken ?Type lisinopril 20 mg tablet 20 mg PO DAILY 03/05/24 11/29/24 12/02/24 History simvastatin 20 mg tablet 20 mg PO QPM 03/05/24 11/29/24 12/02/24 History Exam Airway Mallampati Class: II TM Dist: >3cm Neck ROM: Full Heart: rrr Lungs: cta Assessment and Plan Assessment Anesthesia Assessment: Anesthesia Plan Discussed Final Anesthetic Review Family History of Problems with Anesthesia: No History of Problems with Anesthesia: No NPO: Yes ASA Class: II Final Preanesthetic Review: No Changes in Pt Med Stat, Meds/Allgs Chart Reviewed, Consent Obtained/Reviewed and Anes Risks/Benef Reviewed Patient Risk: Low Procedure Risk: Low Anesthetic Plan Anesthetic Plan: MAC: Disposition: Standard PACU
[2024-12-03 06:57] VITALS: BP 130/72; PULSE 77; RESP 16; TEMP 36.8; O2SAT 95
[2024-12-03] MEDS: Lactated Ringers 1,000 ML 100 ML IVCONT (07:03)
[2024-12-03 08:22] VITALS: BP 112/67; PULSE 78; RESP 16; TEMP 36.7; O2SAT 97
--- NOTE | 2024-12-03 08:24 | PM.OP ---
Brief Operative Note Date of Service: 12/03/24 Pre-op diagnosis: Screening Post-op diagnosis: other (Diverticulosis) Procedure: Colonoscopy to the cecum and TI Surgeon: Joseph Garcia MD Anesthesia: MAC Was an Director Project Management used for this Procedure?: No Estimated blood loss (mL): 0 Pathology: none sent Condition: stable Disposition: PACU
[2024-12-03 08:37] VITALS: BP 120/75; PULSE 68; RESP 18; TEMP 37; O2SAT 98
--- NOTE | 2024-12-03 08:49 | OP_ITS ---
DATE OF SERVICE: 12/03/2024 SURGEON: Joseph Garcia MD INDICATIONS: The patient presents for evaluation of colorectal cancer screening. Full consent has been obtained from him for this, including risks of bleeding and perforation. PREOPERATIVE DIAGNOSIS: Colorectal cancer screening. POSTOPERATIVE DIAGNOSIS: Colorectal cancer screening, diverticulosis and internal hemorrhoids. PROCEDURE PERFORMED: Colonoscopy to the cecum and terminal ileum. ESTIMATED BLOOD LOSS: COMPLICATIONS: ANESTHESIA: Monitored anesthesia care. ASSISTANTS: SPECIMENS: DESCRIPTION OF PROCEDURE: The patient was placed in the left lateral decubitus position. The digital rectal exam revealed no abnormalities. The Olympus video pediatric colonoscope was entered into the rectum advanced easily to the cecum. Once in the cecum I did identify the appendiceal orifice and normal-appearing ileocecal valve. The terminal ileum was cannulated and appeared normal. The scope was withdrawn back in the colon. The entire cecum and ileocecal valve appeared. Scope was slowly withdrawn assessing all mucosal surfaces carefully. Preparation was excellent. I did not visualize any sign of polyps, colitis, nor angiodysplasia. There were 1 or 2 diverticula in the cecum and ascending colon. There was a mild amount of diverticulosis in the sigmoid colon. In the rectum, scope was retroflexed visualizing internal hemorrhoids, but no other pathology. The rectal mucosa appeared normal. Scope was straightened and withdrawn from the patient. He tolerated the procedure well and was returned to the recovery area in stable condition. IMPRESSION: 1. Diverticulosis. 2. Internal hemorrhoids. PLAN: Given today's negative exam and negative family history I would recommend a followup colonoscopy in 10 years for further screening. He will otherwise see me on a p.r.n. basis. Joseph Garcia MD RMDavida/HIMANSHU / [id number] MTDD
== END 2024-12-03 09:28 | disposition home or self-care (01) ==
PROVIDERS: PCP Internal Medicine; Visit Provider Internal Medicine
PROC: 0DJD8ZZ Inspection of Lower Intestinal Tract, Via Natural or Artificial Opening Endoscopic (ICD-10-PCS; CPT 45378; principal; 2024-12-03 07:30)
DX: Z12.11 Encounter for screening for malignant neoplasm of colon (principal); K57.30 Diverticulosis of large intestine without perforation or abscess without bleeding; K64.8 Other hemorrhoids; I10 Essential (primary) hypertension; E78.5 Hyperlipidemia, unspecified; Z79.02 Long term (current) use of antithrombotics/antiplatelets; Z79.899 Other long term (current) drug therapy
CPT/HCPCS: G0121; J2704